=== PATIENT | female | born 1980 | race Caucasian/White ===

== ENCOUNTER 2016-12-01 01:31 | Emergency (ER) | payer MEDICAID | END 2016-12-01 02:57 | disposition home or self-care (01) | LOC: D.ER 01:31 | DX: S92.401A Displaced unspecified fracture of right great toe, initial encounter for closed fracture (principal); W10.9XXA Fall (on) (from) unspecified stairs and steps, initial encounter; Y93.89 Activity, other specified; Y92.018 Other place in single-family (private) house as the place of occurrence of the external cause; F17.200 Nicotine dependence, unspecified, uncomplicated ==